=== PATIENT | female | born 1995 | race Two or more races ===

== ENCOUNTER 2023-06-23 12:58 | Emergency (ER) | payer BC ==
[~2023-06-23] VITALS: Ht 177.8 cm; Wt 63.6 kg
[2023-06-23] MEDS ORDERED: PROMETHAZINE HCL 25 MG/ML 1ML IV ONE (13:15)
[2023-06-23] MEDS ORDERED: SODIUM CHLORIDE 0.9% 1,000 ML IV ONE ×2 (13:15)
[2023-06-23 14:20] LABS: Basophils # (auto) 0 10 ^3/uL (0-0.2); Basophils % (auto) 0.4 % (0.0-2.0); Eosinophils # (auto) 0.1 10 ^3/uL (0-0.8); Eosinophils % (auto) 1.1 % (0.0-7.0); Hematocrit 36.4 % (36.0-46.0); Hemoglobin 12.3 g/dL (12.2-16.2); Lymphocytes # (auto) 0.9 10 ^3/uL (0.4-5.4); Lymphocytes % (auto) 8.5 % (10.0-50.0); Mean Corpuscular Hemoglobin 30.7 pg (28.0-32.0); Mean Corpuscular Hgb Conc. 33.8 g/dL (32.0-36.0); Mean Corpuscular Volume 90.7 fL (80.0-100.0); Monocytes # (auto) 0.5 10 ^3/uL (0-1.3); Monocytes % (auto) 4.5 % (0.0-12.0); Neutrophils # (auto) 8.9 10 ^3/uL (1.6-8.6); Neutrophils % (auto) 85.5 % (37.0-80.0); Red Blood Cells 4.01 10^6/uL (4.0-5.20); Red Cell Distribution Width 12.6 % (11.8-14.3); White Blood Cell 10.4 10^3/uL (4.4-10.8)
[2023-06-23 14:27] LABS: Alanine Aminotransferase 11 U/L (7-40); Albumin 4.2 g/dL (3.2-4.8); Alkaline Phosphatase 71 U/L (46-116); Anion Gap 12.8 (5-15); Aspartate Aminotransferase < 8 U/L (13-40); Bilirubin, Total 0.9 mg/dL (0.2-1.0); Blood Urea Nitrogen 13 mg/dL (9-23); Carbon Dioxide 18.2 mmol/L (20-30); Chloride 107 mmol/L (98-107); Glucose 180 mg/dL (74-106); Potassium 3.2 mmol/L (3.5-5.1); Sodium 138 mmol/L (136-145); Total Protein 6.6 g/dL (5.7-8.2)
[2023-06-23] MEDS ORDERED: MECL1TAB42 PO (16:07)
[2023-06-23] MEDS ORDERED: POTASSIUM EFFERVESENT TAB 25 MEQ PO ONE (16:15)
[2023-06-23 16:23] VITALS: BP 132/62; PULSE 86; RESP 18; TEMP 98.6; O2SAT 96
[2023-06-23 16:32] LABS: Urine Bacteria FEW /hpf (None Seen); Urine Blood Negative /uL (Negative); Urine Clarity HAZY (Clear); Urine Color Yellow (Yellow); Urine Mucus FEW (None Seen); Urine Protein, UAD TRACE (Negative); Urine Urobilinogen Normal (Negative); Urine WBC 18 /hpf (0 - 5); Urine pH 5.5 (5.0-8.0)
== END 2023-06-23 16:32 | disposition home or self-care (01) ==
LOC: ER 12:58
DX: R42 Dizziness and giddiness (principal); E78.5 Hyperlipidemia, unspecified; F15.90 Other stimulant use, unspecified, uncomplicated; Z88.0 Allergy status to penicillin
CPT/HCPCS: 36415; 70450; 74176; 80053; 81001; 84484; 85025; 96361; 96374; 99285; J2550; J7030

== ENCOUNTER 2025-03-17 09:09 | Emergency (ER) | payer BC ==
[~2025-03-17] VITALS: Ht 177.8 cm; Wt 84.8 kg
[~2025-03-17 09:09] MED LIST: MECL1TAB42 PO
[2025-03-17 10:02] LABS: Basophils # (auto) 0 10 ^3/uL (0-0.2); Basophils % (auto) 0.8 % (0.0-2.0); Eosinophils # (auto) 0.3 10 ^3/uL (0-0.8); Eosinophils % (auto) 4.2 % (0.0-7.0); Hematocrit 43.3 % (36.0-46.0); Hemoglobin 14.8 g/dL (12.2-16.2); Lymphocytes % (auto) 16.4 % (10.0-50.0); Mean Corpuscular Hgb Conc. 34.1 g/dL (32.0-36.0); Monocytes # (auto) 0.5 10 ^3/uL (0-1.3); Monocytes % (auto) 7.3 % (0.0-12.0); Neutrophils # (auto) 4.4 10 ^3/uL (1.6-8.6); Neutrophils % (auto) 71.3 % (37.0-80.0); Nucleated Red Blood Cells % 0.1 %; Platelet Count (auto) 320 10^3/uL (140-450); Red Blood Cells 4.76 10^6/uL (4.0-5.20); Red Cell Distribution Width 12.4 % (11.8-14.3); White Blood Cell 6.2 10^3/uL (4.4-10.8)
--- NOTE | 2025-03-17 10:02 | ED.PDOC ---
History of Present Illness HPI Comments A 29 YEAR OLD FEMALE PRESENTS TO THE ED WITH CHIEF COMPLAINT OF DIZZINESS. PATIENT REPORTS THAT SHE HAS BEEN EXPERIENCING INTERMITTENT DIZZINESS/VERTIGO SINCE LAST FRIDAY ALONG WITH ASSOCIATED RASH TO HER BILATERAL ELBOWS AND LEFT THIGH THAT HAS BEEN VERY ITCHY FOR THE PAST 5 DAYS. PATIENT NOTES SHE ALSO HAS SOME RIGHT EAR RINGING DUE TO HER DIZZINESS. PATIENT DENIES SOB, CHEST PAIN, HEADACHE, ABDOMINAL PAIN, CHEST PAIN, FEVER, OR CHILLS. NO FURTHER SYMPTOMS OR CONCERNS AT THIS TIME. PT IS ALERT, ORIENTATION X4 WITH NORMAL GAIT. Chief Complaint: Dizziness Time Seen by MD: 09:58 Primary Care Provider: "I DON'T KNOW" Reviewed Notes: Nurses Notes, Medications, Allergies Allergies: Coded Allergies: Penicillins (Verified Allergy, Unknown, 06/23/23) Home Meds Active Scripts Meclizine HCl (Meclizine 25) 25 Mg Tab, 25 MG PO DAILY for 10 Days, #10 TAB Prov:OC COOL MD 06/23/23 Information Source: Patient Mode of Arrival: Ambulatory Severity: Moderate Timing: Days Duration: Intermittent Prehospital treatment: None Medication Refill: For: Other (DIZZINESS AND VERTIGO, RIGHT EAR DULL PAIN AND RINGING. 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 Family History Family History: Reviewed,noncontributory to illness Social History Smoker: Non-Smoker Alcohol: Occasionally Drugs: Marijuana Lives In: Home Constitutional: denies: chills, diaphoresis, fatigue, fever, malaise, sweats, weakness, others EENTM: reports: ear pain, ear ringing; denies: blurred vision, double vision, ear bleeding, ear discharge, ear drainage, eye pain, eye redness, hearing loss, mouth pain, mouth swelling, nasal discharge, nose bleeding, nose congestion, nose pain, photophobia, tearing, throat pain, throat swelling, voice changes, others Respiratory: denies: cough, hemoptysis, orthopnea, SOB at rest, shortness of breath, SOB with excertion, stridor, wheezing, others Cardiovascular: denies: chest pain, dizzy spells, diaphoresis, Dyspnea on exertion, edema, irregular heart beat, left arm pain, lightheadedness, palpitations, PND, syncope, others Gastrointestinal: denies: abdomen distended, abdominal pain, blood streaked bowels, constipated, diarrhea, dysphagia, difficulty swallowing, hematemesis, melena, nausea, poor appetite, poor fluid intake, rectal bleeding, rectal pain, vomiting, others Genitourinary: denies: abnormal vagina bleeding, burning, dyspareunia, dysuria, flank pain, frequency, hematuria, incontinence, pain, , vagina discharge, urgency, others Neurological: reports: dizziness; denies: fainting, headache, left sided numbness, left sided weakness, numbness, paresthesia, pre-existing deficit, right sided numbness, right sided weakness, seizure, speech problems, tingling, tremors, weakness, others Musculoskeletal: denies: back pain, gout, joint pain, joint swelling, muscle pain, muscle stiffness, neck pain, others Integumetry: reports: rash; denies: bruises, change in color, change in hair/nails, dryness, laceration, lesions, lumps, wounds, others Allergic/Immunocompromised: reports: Itching; denies: Difficulty Healing, Frequent Infections, Hives, others Hematologic/Lymphatic: denies: anemia, blood clots, easy bleeding, easy bruising, swollen glands, others Endocrine: denies: excessive hunger, excessive sweating, excessive thirst, excessive urination, flushing, intolerance to cold, intolerance to heat, unexplained weight gain, unexplained weight loss, others Psychiatric: denies: anxiety, bipolar disorder, depression, hopeless, panic disorder, schizophrenia, sleepless, suicidal, others All Other Systems: Reviewed and Negative Physical Exam General Appearance: No Apparent Distress, Normal HEENT: PERRL/EOMI, Pharynx Normal, TM Abnormal (R) (ERYTHEMA AND DULL OF RIGHT TM WITH MILD EFFUSION, NO DRAINAGE AND BLEEDING. ) Neck: Full Range of Motion, Non-Tender, Normal, Normal Inspection Respiratory: Chest Non-Tender, Lungs Clear, No Accessory Muscle Use, No Respiratory Distress, Normal Breath Sounds Cardiovascular: No Edema, No JVD, No Murmur, No Gallop, Normal Peripheral Pulses, Regular Rate/Rhythm Breast Exam: Deferred Gastrointestinal: No Organomegaly, Non Tender, No Pulsatile Mass, Normal Bowel Sounds, Soft Genitalia: Deferred Pelvic: Deferred Rectal: Deferred Extremities: No calf tenderness, Normal capillary refill, Normal inspection, Normal range of motion, Non-tender, No pedal edema Musculoskeletal : Apperance: Normal Neurologic: Alert, paint prep technician 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 ), Warm Peripheral Pulses: 2+ carotid (R), 2+ carotid (L) Lymphatic: No Adenopathy Was a procedure done? Was a procedure done?: No Differential Dx Considerations may include: UTI, OTITIS MEDIA, VERTIGO X-Ray, Labs, Meds, VS Vital Signs Date Time Temp Pulse Resp B/P (MAP) Pulse Ox O2 Delivery O2 Flow Rate FiO2 03/17/25 10:27 98.0 88 15 106/78 (87) 98 98.0 03/17/25 10:27 88 15 98 Room Air 03/17/25 09:28 97.7 86 13 104/80 (88) 99 97.7 Lab Test 03/17/25 09:59 03/17/25 09:48 Range/Units Urine Color Yellow Yellow Urine Clarity Turbid H Clear Urine pH 6.0 5.0-9.0 Urine Specific [place] 1.022 1.001-1.035 Urine Protein Negative Negative Urine Ketones Negative Negative Urine Blood Negative Negative /uL Urine Nitrite Negative Negative Urine Bilirubin Negative Negative Urine Urobilinogen 2 H Negative mg/dL Urine Leukocyte Esterase 3+ Negative /uL Urine RBC 3 0 - 4 /hpf Urine Microscopic WBC 7 H 0-5 /HPF Urine Squamous Epithelial Cells Few <5 /hpf Urine Bacteria Few H None Seen /hpf Urine Mucus Few None Seen Urine Glucose Normal Normal mg/dL Urine Test Negative Negative Urine Opiates Screen Neg NEGATIVE Urine Fentanyl Screen Neg NEGATIVE Urine Barbiturates Screen Neg NEGATIVE Urine Phencyclidine Screen Neg NEGATIVE Urine Amphetamines Screen Neg NEGATIVE Urine Benzodiazepines Screen Neg NEGATIVE Urine Cocaine Screen Neg NEGATIVE Urine Cannabinoids Screen Neg NEGATIVE White Blood Count 6.2 4.4-10.8 10^3/uL Red Blood Count 4.76 4.0-5.20 10^6/uL Hemoglobin 14.8 12.2-16.2 g/dL Hematocrit 43.3 36.0-46.0 % Mean Corpuscular Volume 91.0 80.0-100.0 fL Mean Corpuscular Hemoglobin 31.0 28.0-32.0 pg Mean Corpuscular Hemoglobin Concent 34.1 32.0-36.0 g/dL Red Cell Distribution Width 12.4 11.8-14.3 % Platelet Count 320 140-450 10^3/uL Mean Platelet Volume 7.8 6.9-10.8 fL Neutrophils (%) (Auto) 71.3 37.0-80.0 % Lymphocytes (%) (Auto) 16.4 10.0-50.0 % Monocytes (%) (Auto) 7.3 0.0-12.0 % Eosinophils (%) (Auto) 4.2 0.0-7.0 % Basophils (%) (Auto) 0.8 0.0-2.0 % Neutrophils # (Auto) 4.4 1.6-8.6 10 ^3/uL Lymphocytes # (Auto) 1.0 0.4-5.4 10 ^3/uL Monocytes # (Auto) 0.5 0-1.3 10 ^3/uL Eosinophils # (Auto) 0.3 0-0.8 10 ^3/uL Basophils # (Auto) 0 0-0.2 10 ^3/uL Nucleated Red Blood Cells 0.1 % Sodium Level 139 136-145 mmol/L Potassium Level 4.2 3.5-5.1 mmol/L Chloride Level 104 98-107 mmol/L Carbon Dioxide Level 27 20-31 mmol/L Anion Gap 8 5-15 Blood Urea Nitrogen 18 9-23 mg/dL Creatinine 0.88 0.550-1.02 mg/dL Glomerular Filtration Rate Calc 91 >90 mL/min BUN/Creatinine Ratio 20.5 H 10.0-20.0 Serum Glucose 93 74-106 mg/dL Calcium Level 9.9 8.7-10.4 mg/dL Current Medications Medications (Trade) Dose Ordered Sig/Helene Route Start Time Stop Time Status Last Admin Ceftriaxone Sodium (Rocephin) 1,000 mg ONCE ONCE IM 03/17/25 11:15 03/17/25 11:16 DC 03/17/25 11:18 X-Ray, Labs, Meds, VS Comment EXTERNAL MEDICAL RECORDS REVIEWED: [NONE] INDEPENDENT HISTORIANS: [NONE] SOCIAL DETERMINANTS OF HEALTH: [NONE] LABS ORDERED: CBC, BMP, PREG URINE, UA, UDS REVIEWED AND INTERPRETED RESULTS: NONE IMAGING ORDERED: NONE, PATIENT DENIED CT HEAD. TREATMENTS ORDERED: ROCEPHIN 1G IM. PROCEDURES PERFORMED: NONE CRITICAL CARE TIME: NONE I HAVE DISCUSSED THE PATIENT WITH THE ATTENDING PHYSICIAN DR. BYRNES AND HE AGREES WITH THE PATIENT'S PLAN OF CARE AND DISPOSITION. BASED ON HISTORY OF PRESENT ILLNESS, AND PHYSICAL EXAM, PATIENT WILL BE DISCHARGED HOME. DISCUSSED PLAN FOR DISCHARGE HOME WITH RX LEVAQUIN, CIPRODEX EAR DROP, AND ANTIVERT. MEDICATION WARNINGS GIVEN. SHARED DECISION MAKING: DISCUSSED WITH PATIENT THAT THEIR WORKUP WAS NORMAL. PATIENT INSTRUCTED TO FOLLOW UP WITH PRIMARY CARE PROVIDER IN 1-2 DAYS FOR RE- EVALUATION OF SYMPTOMS. PATIENT VERBALIZES UNDERSTANDING TO RETURN TO ED FOR NEW OR WORSENING SYMPTOMS OR IF FOLLOW UP WITH PCP CANNOT BE OBTAINED. PATIENT FEELS COMFORTABLE GOING HOME AT THIS TIME. ALL QUESTIONS ADDRESSED AT TIME OF DISCHARGE. Time of 1ST Reevaluation: 11:32 Reevaluation 1ST: Improved Patient Education/Counseling: Diagnosis, Treatment, Need For Follow Up Family Education/Counseling: Diagnosis, Treatment, Need For Follow Up Medical Screening: No EMC Exist At This Time Departure 1 Departure Time of Disposition: 11:40 Impression: Primary Impression: Vertigo Additional Impressions: UTI (urinary tract infection) Qualified Codes: N30.00 - Acute cystitis without hematuria Right otitis media Qualified Codes: H65.191 - Other acute nonsuppurative otitis media, right ear Atopic dermatitis Qualified Codes: L20.9 - Atopic dermatitis, unspecified Disposition: 01 HOME / SELF CARE / HOMELESS Condition: Stable Additional Instructions: FOLLOW-UP WITH PCP IN 1 TO 2 DAYS. TAKE MEDICATIONS PRESCRIBED. RETURN TO ED FOR ANY NEW OR WORSENING SYMPTOMS. e-Prescriptions Meclizine HCl (Meclizine 25) 25 Mg Tab 25 MG PO TID, #30 TAB Prov: RINA MONTEJO 03/17/25 Clobetasol Propionate (Clobetasol Propionate) 0.05 % Oin 1 APPLIC TOP BID, #60 GRAMS Prov: RINA MONTEJO 03/17/25 Ciprofloxacin-Hydrocortisone (Cipro Hc 0.2-1 %) 1 Charu Charu 4 DROP OT BID, #7.5 ML Prov: RINA MONTEJO 03/17/25 Levofloxacin Hemihydrate (LEVAQUIN 500 MG) 500 Mg Tab 1 TAB PO DAILY, #7 TAB Prov: RINA MONTEJO 03/17/25 Discharged With: Self Critical Care Note Critical Care Time?: No Stability Stability form required: No Heart Score Heart Score: Heart Score Response (Comments) Value History N/A 0 EKG N/A 0 Age N/A 0 Risk Factors N/A 0 Troponin N/A 0 Total 0 I personally scribed for RINA MONTEJO ([email or web address]) on 03/17/25 at 10:01. Electronically submitted by Timi Arreola ([email or web address]). I personally scribed for RINA MONTEJO ([email or web address]) on 03/17/25 at 11:17. Electronically submitted by Timi Arreola ([email or web address]). RINA MONTEJO March 17, 2025 10:01
[2025-03-17 10:27] VITALS: BP 106/78; PULSE 88; RESP 15; TEMP 98; O2SAT 98
[2025-03-17 10:36] LABS: Chloride 104 mmol/L (98-107); Potassium 4.2 mmol/L (3.5-5.1); Sodium 139 mmol/L (136-145)
[2025-03-17 10:37] LABS: Anion Gap 8 (5-15); Calcium 9.9 mg/dL (8.7-10.4); Carbon Dioxide 27 mmol/L (20-31)
[2025-03-17 10:42] LABS: BUN/Creatinine Ratio 20.5 (10.0-20.0); Blood Urea Nitrogen 18 mg/dL (9-23); Glucose 93 mg/dL (74-106)
[2025-03-17 10:51] LABS: Urine Bacteria FEW /hpf (None Seen); Urine Blood Negative /uL (Negative); Urine Clarity Turbid (Clear); Urine Color Yellow (Yellow); Urine Mucus FEW (None Seen); Urine Protein, UAD Negative (Negative); Urine Specific Gravity 1.022 (1.001-1.035); Urine Squamous Epithelial Cell FEW /hpf (<5); Urine Urobilinogen 2 mg/dL (Negative); Urine WBC 7 /HPF (0-5)
[2025-03-17 11:07] LABS: Amphetamine Screen, Urine Neg (NEGATIVE); Barbiturate Scree,Urine Neg (NEGATIVE); Benzodiazephine Screen, Urine Neg (NEGATIVE); Cannabinoid Screen, Urine Neg (NEGATIVE); Cocaine Screen, Urine Neg (NEGATIVE); Opiate Scree,Urine Neg (NEGATIVE); Phencyclidine Screen, Urine Neg (NEGATIVE)
[2025-03-17] MEDS: cefTRIAXone SOD 1,000 MG VL IM ONE (11:18)
[2025-03-17] MEDS ORDERED: MECL1TAB42 PO (11:38)
[2025-03-17] MEDS ORDERED: CLOB0.05 TOP (11:38)
[2025-03-17] MEDS ORDERED: LEVO500T91 PO (11:38)
[2025-03-17] MEDS ORDERED: CIPRSUS OT (11:38)
== END 2025-03-17 11:41 | disposition home or self-care (01) ==
LOC: ER 09:09
DX: L20.9 Atopic dermatitis, unspecified (principal); N39.0 Urinary tract infection, site not specified; H66.91 Otitis media, unspecified, right ear; Z79.899 Other long term (current) drug therapy; Z88.0 Allergy status to penicillin
CPT/HCPCS: 36415; 80048; 80307; 81001; 81025; 85025; 96372; 99283; J0696

== ENCOUNTER 2025-08-12 06:18 | Day surgery (SDC) | payer BC ==
[2025-08-09 11:40] LABS: Hematocrit 40.5 % (36.0-46.0); Hemoglobin 14.0 g/dL (12.2-16.2); Mean Corpuscular Hemoglobin 31.2 pg (28.0-32.0); Mean Corpuscular Volume 90.5 fL (80.0-100.0); Nucleated Red Blood Cells % 0.1 %
[2025-08-09 11:56] LABS: INR 0.96 (0.9-1.15); Partial Thromboplastin Time 23.9 SEC (24.5-34.5); Prothrombin Time 10.2 sec (9.3-11.8)
[2025-08-09 12:00] LABS: Urine Protein, UAD Negative (Negative)
[2025-08-09 13:01] LABS: Alanine Aminotransferase 15 U/L (7-40); Albumin 4.0 g/dL (3.2-4.8); Alkaline Phosphatase 52 U/L (46-116); Anion Gap 9 (5-15); BUN/Creatinine Ratio 15.1 (10.0-20.0); Bilirubin, Total 0.6 mg/dL (0.2-1.0); Blood Urea Nitrogen 13 mg/dL (9-23); Calcium 8.9 mg/dL (8.7-10.4); Carbon Dioxide 27 mmol/L (20-31); Chloride 106 mmol/L (98-107); Glucose 87 mg/dL (74-106); Potassium 4.1 mmol/L (3.5-5.1); Sodium 142 mmol/L (136-145); Total Protein 6.1 g/dL (5.7-8.2)
--- NOTE | 2025-08-11 10:14 | DVHHP ---
ADMIT DATE: 08/12/2025 CHIEF COMPLAINT: Desires bilateral salpingectomy and removal of IUD. HISTORY OF PRESENT ILLNESS: The patient is a 30-year-old 2, para 1-0-1-1 admitted for laparoscopic placement of Filshie clips possible, bilateral salpingectomy. The patient is requesting salpingectomy bilateral. Risks, complications, and alternatives discussed with the patient. The patient is advised that she will become infertile. She expressed that her previous was very difficult. The patient was bedridden and almost lost the fetus multiple times and she does not want to go through this anymore. She desires to have bilateral salpingectomy. I have advised her of possibility of not doing so in case there is scar tissue and she has agreed to bilateral Filshie clip placement as well. She also is requesting IUD removal. String of IUD was not seen in the office. Subsequently, D and C and hysteroscopy needs to be done to locate the IUD and removal of the IUD. PAST MEDICAL HISTORY: Endometriosis and asthma. PAST SURGICAL HISTORY: Multiple laparoscopies for endometriosis . SOCIAL HISTORY: None. FAMILY HISTORY: None. ALLERGIES: KEFLEX. REVIEW OF SYSTEMS: Consistent with HPI. PHYSICAL EXAMINATION: VITAL SIGNS: Stable, afebrile. HEENT: Within normal limits. CARDIOVASCULAR: Regular rate and rhythm. LUNGS: Clear to auscultation. BREASTS: Symmetrical, no masses. ABDOMEN: Soft, nontender. PELVIC: External genitalia within normal limits. Vagina normal. Cervix normal. Uterus 7-week size. Adnexa nonpalpable. EXTREMITIES: No clubbing, cyanosis or edema. IMPRESSION: * Desires tubal sterilization. * Desires IUD removal. PLAN: D and C, hysteroscopy, removal of IUD, bilateral tubal sterilization via Filshie clip versus salpingectomy bilaterally and possibility of infertility discussed with the patient. Options reviewed. All questions answered. The patient fully understands. She wishes to proceed with planned procedure. DO VICK Tavera/DAKSHA/ROBERT TID: [id number] RECEIPT: [id number]
[~2025-08-12] VITALS: Ht 175.3 cm; Wt 83.9 kg
[~2025-08-12 06:18] MED LIST changes: +ALBUAER3 IN; +CETI10TA2 PO; +FLUT50SP; -MECL1TAB42 PO
[2025-08-12] MEDS ORDERED: ROCURONIUM 10MG/ML 10ML VIAL IV ONE (06:54)
[2025-08-12] MEDS ORDERED: SUCCINYLCHOLINE CHLORIDE 20 MG/ML 10ML VIAL IV ONE (06:54)
[2025-08-12] MEDS ORDERED: ZOFR4T PO (06:58)
[2025-08-12] MEDS ORDERED: HYDR-4072 PO (06:58)
[2025-08-12] MEDS ORDERED: IBUP-1456 PO (06:58)
[2025-08-12] MEDS ORDERED: HYDROmorphone HCL 2 MG/ML VL/or syr IV PRN (07:00)
[2025-08-12] MEDS ORDERED: MORPHINE SULFATE 4 MG/ML SYR/VIAL IV PRN (07:00)
[2025-08-12] MEDS ORDERED: KETOROLAC TROMETH 30 MG/ML 1ML VIAL IV ONE (07:00)
[2025-08-12] MEDS ORDERED: BUPIVACAINE HCL 50 ML ONE (07:01)
[2025-08-12] MEDS ORDERED: PROPOFOL 10 MG/ML 20 ML IV ONE (07:08)
[2025-08-12] MEDS ORDERED: LIDOCAINE 1% INJ PF 5ML AMP ONE (07:08)
[2025-08-12] MEDS ORDERED: ONDANSETRON HCL 4 MG/2 ML VIAL ONE (07:08)
[2025-08-12] MEDS ORDERED: LIDOCAINE HCL 2% TOP JELLY 5ML TOP ONE (07:08)
[2025-08-12] MEDS ORDERED: MIDAZOLAM HCL 2MG/2ML 2ml VIAL (1mg/ml) ONE (07:08)
[2025-08-12] MEDS ORDERED: SODIUM CHLORIDE LOCK 10 ML ONE (07:08)
[2025-08-12] MEDS ORDERED: fentaNYL CITRATE 5 ML ONE (07:08)
[2025-08-12] MEDS: ceFAZolin 2 GM/D5W50ml 50 ML IV ONE (07:13)
[2025-08-12] MEDS: LIDOCAINE W/ EPINEPHRINE 1% 20ML VIAL ONE (07:13)
[2025-08-12] MEDS ORDERED: MORPHINE SULFATE INJ 2 MG/ml SYRG IV PRN (07:42)
[2025-08-12] MEDS ORDERED: SUGAMMADEX 200mg/2ml Vial (100MG/ML) IV ONE (07:52)
[2025-08-12 08:10] VITALS: TEMP 97.6
[2025-08-12 08:11] VITALS: O2SAT 98
[2025-08-12] MEDS: HYDROmorphone HCL 2 MG/ML VL/or syr IV PRN (08:26)
[2025-08-12] MEDS ORDERED: ONDANSETRON HCL 4 MG/2 ML VIAL IV PRN (08:45)
[2025-08-12] MEDS ORDERED: LACTATED RINGER'S 1,000 ML IV SCH (08:45)
[2025-08-12] MEDS: ACETAMINOPHEN IV 1000 MG/100ML (10MG/ML) IV ONE (08:53)
[2025-08-12] MEDS ORDERED: ACETAMINOPHEN IV 100 ML IV ONE (08:54)
[2025-08-12] MEDS: METOCLOPRAMIDE HCL 5MG/ml INJ 2ml VIAL IV PRN (08:57)
--- NOTE | 2025-08-12 09:37 | DVHOP2 ---
Operative Report DATE OF OPERATION: 08/12/25 PREOPERATIVE DIAGNOSES: 1. Desires elective tubal sterilization.desires bilateral salpingectomy 2. desires iud removal POSTOPERATIVE DIAGNOSES: 1. same SURGEON: Marie Gregorio D.O./meliton ANESTHESIOLOGIST: ismael TYPE OF ANESTHESIA : General. CONSENT: The patient was informed of the risks and benefits of the procedure. The patient was informed of the risks and benefits of the procedure. These include but are not limited to , complications of anesthesia, postoperative infection, incomplete relief of symptoms, recurrence of symptoms, damage to blood vessels, nerves and tendons, deep venous thrombosis, pulmonary embolism and possible need for repeat surgery in the future. FINDINGS: Cervix is grossly normal appearing. Uterus is 10 weeks' size. Adnexa nonpalpable.iud stock in upper fundus region SPECIMEN: EMC,iud and bilat tubes COMPLICATIONS: None. BLOOD PRODUCTS USED: None. PROCEDURES: Laparoscopic bilateral salpingectomy , D&C hysteroscopy iud removal PROCEDURE IN DETAIL: The patient was taken to the operating room where she was placed under general anesthesia. The patient was then prepped and draped in the usual sterile manner in the dorsal lithotomy position. The bladder was emptied using a straight catheter. Examination under anesthesia revealed the above findings. A weighted speculum was placed in the vagina. The anterior lip of the cervix was grasped using single-tooth tenaculum. Cervix was dilated. Uterus sounded to 10 cm. HUMI catheter was placed. Attention was then turned to the abdomen where a Veress needle was introduced. Abdomen was distended with 3L of CO2 gas. Using Visiport, abdomen was entered under direct visualization. S urvey of abdominal cavity revealed normal finding. A 8 mm trocar was placed into the suprapubic region. bilateral salpingectomy was done via endo jeet both tubes were removed and sent to pathology. No bleeding was noted. All the instruments were removed from the abdomen and pelvis. CO2 gas released. Incisional ports were closed using #4-0 Vicryl and chris for the larger port. Then the d and c,hysteroscopy part of procedure was initated where hysteroscope advanced into the uterine cavity. iud was embedded in upper fundus region it was horizointally located subsequently it was removed. Hysteroscope was removed. Endometrial curetting was performed.. The patient tolerated the procedure well. All instruments were removed from the patient's cervix. The patient was taken to the recovery room in a stable condition. ESTIMATED BLOOD LOSS: 20 mL Visit Coding OBGYN Date of Service: Aug 12, 2025 Billing Provider: MARIE GREGORIO DO WHEAT INSPECTOR Common Visit Codes: 54644-[id number] OBS CARE (HIGH) WHEAT INSPECTOR Procedure Codes: 18096-[id number], SURG: W/EA, 49896-ZKB.SURG:W/REM ADNEXAL STRUCT MARIE GREGORIO DO Aug 12, 2025 09:37
--- NOTE | 2025-08-12 09:40 | POSTOP ---
Post-Operative Note Post-Operative Note Preop Diagnosis desires bilat salpingectomy,desires iud removal Postop Diagnosis: s/p bs,iud removal Operation performed d and c,hysteroscopy,iud removal laparocopic bilateral salpingectomy Specimen iud,emb,bilat tubes Anesthesia: General Anesthesiologist: ismael Blood Loss(fluid mgmt) 20ml Surgeon Marie Gregorio Active Directory Engineer meliton Implant clips Complications & Mgmt none Date 08/12/25 Time 09:38 Visit Coding OBGYN Date of Service: Aug 12, 2025 Billing Provider: MARIE GREGORIO DO NIGHT CLEANER Common Visit Codes: 41288-[id number] OBS CARE (HIGH) NIGHT CLEANER Procedure Codes: [id number], SURG: W/EA, 12809-DMZ.SURG:W/REM ADNEXAL STRUCT MARIE GREGORIO DO Aug 12, 2025 09:40
--- NOTE | 2025-08-12 09:42 | DVHDS2 ---
Physician Discharge Progress N Final Diagnosis: s/p bs,iud removal Operations or Procedures: Operations or Procedures d and c,hysteroscopy,iud removal laparocopic bilateral salpingectomy Condition on Discharge: Good Disposition: Home Discharge Instructions: Diet: Regular Activity: Light activity Follow Up/Referral: next Medications: kemi,norco Follow Up Care: Specialist: 1w Discharge Statement: "Patient was advised to return to the ER or call 911 if any headaches, dizz iness, shortness of breath, chest pain, abdominal pain, bleeding, fevers, or worsening of medical condition. Patient was counseled about treatment plan, medications, possible side effects, patientverbalized understanding. All questions were answered to the best of my ability. This discharge took greater then 30 minutes in planning, reviewing documentation, counseling the patient, and discussing with other team members." Visit Coding OBGYN Date of Service: Aug 12, 2025 Billing Provider: JUAN MANUEL RODRIGUEZ DO NETWORK ACCOUNT MANAGER Common Visit Codes: [id number] OBS CARE (HIGH), 50447-GRE/OBS DISCH DAY >30MIN NETWORK ACCOUNT MANAGER Procedure Codes: [id number], SURG: W/EA, 10052-WZL.SURG:W/REM ADNEXAL STRUCT JUAN MANUEL RODRIGUEZ DO Aug 12, 2025 09:42
[2025-08-12 10:00] VITALS: BP 102/64; PULSE 85; RESP 11; O2SAT 96
== END 2025-08-12 10:15 | disposition home or self-care (01) ==
LOC: SUR 06:18
PROVIDERS: ATTEND Obstetrics & Gynecology
DX: Z30.2 Encounter for sterilization (principal); J45.909 Unspecified asthma, uncomplicated; Z88.1 Allergy status to other antibiotic agents
CPT/HCPCS: 36415; 58562; 58661; 80053; 81001; 81025; 85025; 85610; 85730; 86850; 86900; 86901; J0330; J0690; J1171; J2250; J2405; J2704; J2765; J3010; J3490; J0131

== ENCOUNTER 2025-08-16 15:13 | Outpatient (CLI) | payer BC ==
[~2025-08-16 15:13] MED LIST changes: +HYDR-4072 PO; +IBUP-1456 PO; +ZOFR4T PO
[2025-08-16 15:23] LABS: Hematocrit 40.9 % (36.0-46.0); Hemoglobin 14.0 g/dL (12.2-16.2); Mean Corpuscular Hemoglobin 31.0 pg (28.0-32.0); Mean Corpuscular Volume 90.3 fL (80.0-100.0); Nucleated Red Blood Cells % 0.1 %
== END 2025-08-16 17:00 | disposition home or self-care (01) ==
LOC: LAB 15:13
PROVIDERS: ATTEND Obstetrics & Gynecology
DX: Z01.419 Encounter for gynecological examination (general) (routine) without abnormal findings (principal); R10.20 Pelvic and perineal pain unspecified side; N93.9 Abnormal uterine and vaginal bleeding, unspecified
CPT/HCPCS: 36415; 85025